=== PATIENT | male | born 1985 | race Caucasian/White ===

== ENCOUNTER 2018-05-02 07:07 | Day surgery (SDC) | payer OTHER ==
[~2018-05-02 07:07] MED LIST: Buffered Lidocaine 0.9% SYRIN* 5 ML/SYR SYRINGE INTRADERM ONE; Sodium Citrate/Citric Acid* 15 ML UDC ONE; Sodium Citrate/Citric Acid* 15 ML UDC PO ONE
[2018-05-02] MEDS ORDERED: ceFAZolin 2 GM PREMIX in ORs 2 GM/50 ML BAG IVPB ONE (07:15)
[2018-05-02] MEDS ORDERED: Bupivacaine 0.25% SDV* 30 ML ONE (08:07)
[2018-05-02] MEDS ORDERED: fentaNYL* 50 MCG/ML 2 ML VIAL (100 MCG VIAL) ONE (08:12)
[2018-05-02] MEDS ORDERED: Propofol* 10 MG/ML 20 ML BTL IV PUSH ONE (08:12)
[2018-05-02] MEDS ORDERED: Lidocaine 2% PF * 5 ML VIAL ONE (08:12)
[2018-05-02] MEDS ORDERED: Dexamethasone IV* 4 MG/ML 1 ML (4 MG) ONE (08:26)
[2018-05-02] MEDS ORDERED: fentaNYL* 50 MCG/ML 2 ML VIAL (100 MCG VIAL) IV PRN (08:52)
[2018-05-02] MEDS ORDERED: Ketorolac INJ* 30 MG/ML 1 ML VIAL IV PRN (08:52)
[2018-05-02] MEDS ORDERED: Naloxone* 0.4 MG/ML 1 ML VIAL IV PRN (08:52)
[2018-05-02] MEDS ORDERED: Ketorolac INJ* 30 MG/ML 1 ML VIAL ONE (09:48)
[2018-05-02] MEDS ORDERED: traMADol TAB* 50 MG ONE (10:08)
[2018-05-02 13:40] VITALS: BP 119/71
--- NOTE | 2018-05-03 04:57 | OP ---
DATE OF OPERATION: 05/02/18 - [facility] DATE OF : 89 SURGEON: Ranjit Velarde MD SURVEILLANCE DUAL RATE OFFICER: JOSH Howard. An assistant professor of philosophy was needed for the entirety of the procedure to aid in retraction and positioning of the arm. ANESTHESIOLOGIST: Dr. Weaver. ANESTHESIA: General. 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 OPERATIVE PROCEDURE: 1. Decompression of right ulnar nerve at the wrist including decompression of the motor branch. 2. Excision of right hook of the hamate. INDICATIONS: Jose had the aforementioned CRPP done, you could see where the pin went right through the hook of the hamate. He has had ulnar nerve dysfunction since the CRPP. I talked to him about decompression of the ulnar nerve at the wrist. He had enough ulnar nerve function, I do not think that the nerve was injured, I just thought it was irritated and also excising the hook of the hamate, so I thought he might have some sharp bony edges on the hook of the hamate since he had the pin tract seen going through the hook of the hamate. He understood the risks and benefits and he wanted to proceed. ESTIMATED BLOOD LOSS: 2 mL. COMPLICATIONS: None. FINDINGS: See above and below. DESCRIPTION OF PROCEDURE: Jose was seen in the preoperative holding area. The correct site, side, and procedure were identified. We came back to the operating room where the arm was prepped and draped in the usual fashion. A time-out was performed. I began by exsanguinating the arm with the Esmarch and the tourniquet was inflated to 250 mmHg. A longitudinal incision in the proximal palm was made in the typical location for an open carpal tunnel release. This was brought back across the wrist in a Alex-type fashion along the ulnar wrist. Dissection was carried down and full-thickness flaps were raised off the distal antebrachial fascia and off the transverse carpal ligament and the fascia overlying Quintero's ligament. I then went ahead and released the fascia overlying Guyon's canal and came proximally and released it well past the wrist , then came distally. I then came just off the radial aspect of the hook of the hamate and released the transverse carpal ligament off the hook of the hamate and release was completed distally and proximally and a standard carpal tunnel release was performed. I then exposed the motor branch of the ulnar nerve and I went ahead and retracted the sensory branches, which had been previously decompressed out of the way and released the superficial muscular origin of the hypothenar muscles off the hook of hamate and then released the subfascial layer in its entirety. A [place] blade was used to very carefully release the soft tissue off the hook of the hamate while gently retracting the ulnar nerve. The hook of the hamate was then excised in a piecemeal fashion with a rongeur. Once I had taken it down to nice smooth edges at the base and there was nothing rough, I went ahead and placed bone wax over the cancellous bed of bone. Lastly, I checked the decompression, both the sensory branches and the motor branch of the ulnar nerve were completely decompressed, the hook of the hamate was very nicely excised. There were no rough edges or sharp edges. Everything was irrigated out. Hemostasis had been obtained with the bipolar cautery device throughout the case. Skin was closed with 4-0 nylon suture. 0.25% Marcaine was infiltrated. The wounds were dressed and a cock-up wrist splint was applied. Tourniquet was deflated and the hand pinked up immediately. He was taken to the recovery room in stable condition. [id number] #: [id number]
== END 2018-05-02 13:44 | disposition home or self-care (01) ==
LOC: OREAST 07:07
PROVIDERS: ATTEND Orthopaedic Surgery Hand Surgery
DX: G56.21 Lesion of ulnar nerve, right upper limb (principal); Z72.0 Tobacco use; G47.33 Obstructive sleep apnea (adult) (pediatric)
CPT/HCPCS: 88304; 88311; A9270-GY; J0690; J1100; J1885; J2704; J3010

== ENCOUNTER 2024-03-03 10:36 | Observation (INO) ==
[2024-03-03] MEDS: Lactated Ringers 1000 ml BAG 1,000 ML IV ONE (11:19)
[2024-03-03 11:38] LABS: ABS Basophils 0.1 10^3/uL (0.0-0.1); ABS Eosinophils 0.1 10^3/uL (0.0-0.5); ABS Lymphocytes 0.5 10^3/uL (1.0-4.8); ABS Neutrophils 10.4 10^3/uL (1.5-7.6); ABS Nucleated RBC 0.01 10^3/ul; Eosinophil % 1.1 %; Hematocrit 38.5 % (38-53); Lymphocyte % 4.3 %; Mean Corpuscular Hgb Conc 33.7 g/dL (31-36); Mean Corpuscular Volume 95.1 fL (80-97); Mean Platelet Volume 7.4 fL (7.5-11.2); Platelet Count 335 10^3/uL (150-450); Red Blood Count 4.05 10^6/uL (4.06-5.63); Red Cell Distribution Width 13.1 % (12-17); White Blood Count 12.1 10^3/uL (3.6-10.2)
[2024-03-03 11:48] LABS: Urine Appearance Clear; Urine Bilirubin Negative (Negative); Urine Blood Negative (Negative); Urine Color Colorless; Urine Glucose Negative (Negative); Urine Ketones Negative (Negative); Urine Nitrite Negative (Negative); Urine Protein Negative (Negative); Urine Specific Gravity 1.009 (1.002-1.030); Urine Urobilinogen Negative (Negative)
[2024-03-03 11:56] LABS: INR 1.04 (0.85-1.14)
[2024-03-03 12:17] LABS: ALT 10 U/L (7-52); Albumin/Globulin Ratio 1.9 (1-3); Alkaline Phosphatase 63 U/L (35-149); Anion Gap 7 mmol/L (2-16); Blood Urea Nitrogen 10 mg/dL (6-24); CO2 Carbon Dioxide 23 mmol/L (22-32); Calcium 8.1 mg/dL (8.6-10.3); Chloride 107 mmol/L (101-111); Creatinine, Serum 0.61 mg/dL (0.67-1.17); Globulin 2.1 g/dL (2-4); Glucose 81 mg/dL (70-100); Sodium 137 mmol/L (135-145); Total Bilirubin 0.3 mg/dL (0.2-1.0); Total Protein 6.1 g/dL (6.4-8.9); eGFR CKD-EPI 126.9 (>60)
[2024-03-03 13:17] LABS: Magnesium 1.6 mg/dL (1.9-2.7)
[2024-03-03] MEDS: Magnesium Sulfate 2 gm BAG 2 GM/50 ML BAG IVPB ONE (14:33)
[2024-03-03] MEDS: Nicotine PATCH 21 MG/24 HR PATCH TRANSDERM SCH (17:04)
[2024-03-04] MEDS: HYDROcodone/ACETAMIN 5/325 mg TAB PO PRN (08:36)
[2024-03-04 08:59] LABS: Hematocrit 41.5 % (38-53); Hemoglobin 14.3 g/dL (13.2-16.3); Mean Corpuscular Hemoglobin 32.7 pg (27-33); Mean Corpuscular Hgb Conc 34.6 g/dL (31-36); Mean Corpuscular Volume 94.6 fL (80-97); Mean Platelet Volume 7.1 fL (7.5-11.2); Platelet Count 318 10^3/uL (150-450); Red Blood Count 4.38 10^6/uL (4.06-5.63); Red Cell Distribution Width 13.3 % (12-17); White Blood Count 7.8 10^3/uL (3.6-10.2)
[2024-03-04 09:17] LABS: Calcium 9.3 mg/dL (8.6-10.3); Creatinine, Serum 0.84 mg/dL (0.67-1.17); Potassium 4.1 mmol/L (3.5-5.0); eGFR CKD-EPI 115.2 (>60)
[2024-03-04] MEDS ORDERED: Nicotine GUM 4MG FRUIT FLAVOR PO PRN (09:57)
[2024-03-04] MEDS: Magnesium Sulf 4 GM/100 ML IV 4,000 MG/100 ML BAG IVPB ONE (11:06)
[2024-03-05 05:47] LABS: Hematocrit 41.9 % (38-53); Hemoglobin 14.5 g/dL (13.2-16.3); Mean Corpuscular Hemoglobin 32.9 pg (27-33); Mean Corpuscular Hgb Conc 34.7 g/dL (31-36); Mean Corpuscular Volume 94.8 fL (80-97); Mean Platelet Volume 7.4 fL (7.5-11.2); Platelet Count 318 10^3/uL (150-450); Red Blood Count 4.42 10^6/uL (4.06-5.63); Red Cell Distribution Width 13.5 % (12-17); White Blood Count 9.3 10^3/uL (3.6-10.2)
[2024-03-05 06:30] LABS: Calcium 9.7 mg/dL (8.6-10.3); Creatinine, Serum 1.02 mg/dL (0.67-1.17); Magnesium 1.9 mg/dL (1.9-2.7); eGFR CKD-EPI 97.1 (>60)
[2024-03-05 08:13] LABS: ABS Eosinophils 0.1 10^3/uL (0.0-0.5); ABS Lymphocytes 1.8 10^3/uL (1.0-4.8); ABS Monocytes 1.9 10^3/uL (0.0-1.1); ABS Neutrophils 5.6 10^3/uL (1.5-7.6); ABS Nucleated RBC 0.02 10^3/ul; Eosinophil % 0.6 %; Lymphocyte % 18.8 %; Nucleated Red Blood Cells % 0.2 %/100WBC (0.0-0.8)
[2024-03-05 14:51] VITALS: BP 117/61
== END 2024-03-05 16:35 | disposition home or self-care (01) ==
LOC: EDHOLD 10:36 → ED 10:36 → SUATTDRO 15:08 → MEDTELE 03-04 14:27
PROVIDERS: ADMIT Internal Medicine Hematology & Oncology; ATTEND Student in an Organized Health Care Education/Training Program

== ENCOUNTER 2024-04-21 07:04 | Inpatient (IN) ==
[2024-04-21] MEDS ORDERED: LORazepam 2 mg VIAL 1 ml IV PUSH PRN ×2 (09:09)
[2024-04-21] MEDS ORDERED: Lorazepam PYXIS KEY PRN (09:19)
[2024-04-21] MEDS: Nicotine PATCH 21 MG/24 HR PATCH TRANSDERM SCH (10:47)
[2024-04-21] MEDS: HYDROcodone/ACETAMIN 5/325 mg TAB PO PRN (17:08)
[2024-04-22 06:39] LABS: Calcium 9.9 mg/dL (8.6-10.3); Creatinine, Serum 0.99 mg/dL (0.67-1.17); Magnesium 1.9 mg/dL (1.9-2.7); Potassium 4.6 mmol/L (3.5-5.0); eGFR CKD-EPI 100.6 (>60)
[2024-04-22 06:55] LABS: TSH Ultra Thyroid Stim Horm 5.33 mcIU/mL (0.34-5.60)
[2024-04-23 08:17] VITALS: BP 134/74
== END 2024-04-23 11:28 | disposition home or self-care (01) | DRG 53 ==
LOC: MEDTELE 07:04
PROVIDERS: ADMIT Psychiatry & Neurology Neurology; ATTEND Psychiatry & Neurology Neurology